=== PATIENT | male | born 1960 | race African-American/Black ===

== ENCOUNTER 2017-06-02 03:46 | Inpatient (IN) | payer MEDICAID ==
[~2017-06-02] VITALS: Ht 175.3 cm; Wt 103.0 kg
[2017-06-02 04:48] LABS: BASOPHILS % 0.4 % (0.0-2.0); EOSINOPHILS % 4.8 % (0.0-5.0); HEMATOCRIT. 43.4 % (42.0-52.0); HEMOGLOBIN. 14.7 g/dL (14.0-18.0); LYMPHOCYTES % 25.4 % (20.0-50.0); MEAN CORPUSCULAR HEMOGLOBIN 29.4 pg (28.0-32.0); MEAN CORPUSCULAR VOLUME 86.6 fL (80.0-94.0); MEAN PLATELET VOLUME 9.1 fl (7.4-10.4); MONOCYTES % 8.2 % (2.0-8.0); NEUTROPHILS % 61.2 % (40.0-76.0); PLATELET 197 x1000/uL (130-400); RED BLOOD CELL COUNT 5.02 mill/uL (4.7-6.1); RED CELL DISTRIBUTION WIDTH 14.5 % (11.6-14.6)
[2017-06-02 04:55] LABS: PROTHROMBIN TIME 10.4 sec
[2017-06-02 05:00] LABS: CARBON DIOXIDE 28 mEq/L (21-32); CHLORIDE 106 mEq/L (98-107); TROPONIN I < 0.02 ng/mL (0.00-0.04)
[2017-06-02] MEDS ORDERED: ASPIRIN 325MG TABLET PO ONE (07:45)
[2017-06-02] MEDS ORDERED: ASPIRIN 325MG TABLET PO SCH (10:30)
[2017-06-02] MEDS ORDERED: ONDANSETRON HCL 4MG/2ML VIAL IV PRN ×2 (10:30→17:15)
[2017-06-02] MEDS ORDERED: ACETAMINOPHEN 325MG TABLET PO PRN (10:30)
[2017-06-02] MEDS ORDERED: MORPHINE SULFATE 4 MG/ML CPJ (NOT FOR IM USE) IV PRN (10:45)
[2017-06-02] MEDS ORDERED: REGADENOSON 0.4 MG/5 ML IV SCH (11:15)
[2017-06-02] MEDS: LOSARTAN POTASSIUM 100 MG TABLET PO SCH (11:21)
[2017-06-02] MEDS: CLONIDINE 0.1MG TABLET PO SCH ×2 (13:24→21:07)
[2017-06-02] MEDS ORDERED: DOCUSATE SODIUM 100MG CAPSULE PO PRN (17:15)
[2017-06-02] MEDS ORDERED: ENOXAPARIN 40MG/0.4ML SYR SUBCUT SCH (18:00)
[2017-06-02 20:48] LABS: *AMPHETAMINES SCREEN URINE NEGATIVE (NEGATIVE); *BARBITURATES SCREEN URINE NEGATIVE (NEGATIVE); *COCAINE SCREEN URINE NEGATIVE (NEGATIVE); CANNABINOID URINE SCREEN NEGATIVE (NEGATIVE); METHADONE URINE SCREEN NEGATIVE (NEGATIVE); OPIATES URINE SCREEN NEGATIVE (NEGATIVE); PHENCYCLIDINE URINE SCREEN NEGATIVE (NEGATIVE)
[2017-06-02 20:50] LABS: *BENZODIAZEPINES SCREEN URINE NEGATIVE (NEGATIVE)
[2017-06-02] MEDS ORDERED: ZOLPIDEM TARTRATE 5MG TABLET PO PRN (21:00)
[2017-06-02] MEDS: AMLODIPINE 5MG TABLET PO SCH (21:00)
[2017-06-03] MEDS: CLONIDINE 0.1MG TABLET PO SCH ×2 (05:42→14:00)
[2017-06-03 06:55] LABS: BASOPHILS % 0.4 % (0.0-2.0); EOSINOPHILS % 4.4 % (0.0-5.0); HEMATOCRIT. 47.5 % (42.0-52.0); HEMOGLOBIN. 15.9 g/dL (14.0-18.0); MEAN CORPUSCULAR HEMOGLOBIN 29.3 pg (28.0-32.0); MEAN CORPUSCULAR VOLUME 87.8 fL (80.0-94.0); MEAN PLATELET VOLUME 9.1 fl (7.4-10.4); MONOCYTES % 7.4 % (2.0-8.0); NEUTROPHILS % 60.8 % (40.0-76.0); PLATELET 211 x1000/uL (130-400); RED BLOOD CELL COUNT 5.41 mill/uL (4.7-6.1); RED CELL DISTRIBUTION WIDTH 14.7 % (11.6-14.6)
[2017-06-03 07:09] LABS: CARBON DIOXIDE 26 mEq/L (21-32); CHLORIDE 105 mEq/L (98-107); HDL CHOLESTEROL 51 mg/dL (40-59); LDL CHOLESTEROL 188 mg/dL (5-100)
[2017-06-03] MEDS ORDERED: REGADENOSON 0.4 MG/5 ML IV ONE (08:54)
[2017-06-03] MEDS ORDERED: ENOXAPARIN 40MG/0.4ML SYR SUBCUT SCH (09:00)
[2017-06-03] MEDS ORDERED: ASPIRIN 325MG TABLET PO SCH (09:00)
[2017-06-03] MEDS: AMLODIPINE 5MG TABLET PO SCH (09:57)
[2017-06-03] MEDS: LOSARTAN POTASSIUM 100 MG TABLET PO SCH (09:57)
[2017-06-03 14:16] VITALS: BP 135/88
[2017-06-03] MEDS ORDERED: ENOXAPARIN 30MG/0.3ML SYR SUBCUT SCH (18:00)
[2017-06-03] MEDS ORDERED: ATORVASTATIN CALCIUM 20MG TABLET PO SCH (21:00)
== END 2017-06-03 15:30 | disposition home or self-care (01) | DRG 198 ==
LOC: ER 03:46 → 7WST 08:19 → EDBEDREQ 08:23 → ENRESERV 08:33
PROVIDERS: ADMIT Family Medicine Adult Medicine; ATTEND Family Medicine Adult Medicine
DX: I24.9 Acute ischemic heart disease, unspecified (principal); I10 Essential (primary) hypertension; E78.5 Hyperlipidemia, unspecified; Z79.82 Long term (current) use of aspirin; Z91.14 Patient's other noncompliance with medication regimen
CPT/HCPCS: 36415; 71010; 78452; 80053; 80061; 80305; 83880; 84484; 85025; 85610; 93005; 93017; 93306; 99285; A9500; J1650; J2785

== ENCOUNTER 2017-06-08 07:47 | Emergency (ER) | payer MEDICAID ==
[~2017-06-08] VITALS: Ht 175.3 cm; Wt 102.0 kg
[2017-06-08 07:57] VITALS: BP 159/89
== END 2017-06-08 10:06 | disposition left against medical advice (07) ==
LOC: ER 10:02
DX: I10 Essential (primary) hypertension (principal); Z53.21 Procedure and treatment not carried out due to patient leaving prior to being seen by health care provider

== ENCOUNTER 2017-09-20 15:50 | Emergency (ER) | payer MEDICAID ==
[~2017-09-20] VITALS: Ht 175.3 cm; Wt 100.0 kg
[2017-09-20] MEDS ORDERED: ONDANSETRON HCL 4MG/2ML VIAL IV STA (16:41)
[2017-09-20] MEDS ORDERED: MORPHINE SULFATE 10 MG/ML CPJ IV ONE ×2 (16:45→19:00)
[2017-09-20] MEDS ORDERED: LORAZEPAM 2MG/ML CPJ IV ONE (16:45)
[2017-09-20 17:47] LABS: BASOPHILS % 0.3 % (0.0-2.0); CHLORIDE 105 mEq/L (98-107); EOSINOPHILS % 2.5 % (0.0-5.0); HEMATOCRIT. 44.1 % (42.0-52.0); HEMOGLOBIN. 15.2 g/dL (14.0-18.0); LYMPHOCYTES % 22.3 % (20.0-50.0); MEAN CORPUSCULAR HEMOGLOBIN 30.3 pg (28.0-32.0); MEAN CORPUSCULAR VOLUME 87.7 fL (80.0-94.0); MEAN PLATELET VOLUME 9.6 fl (7.4-10.4); MONOCYTES % 7.9 % (2.0-8.0); PLATELET 197 x1000/uL (130-400); RED BLOOD CELL COUNT 5.03 mill/uL (4.7-6.1); RED CELL DISTRIBUTION WIDTH 14.2 % (11.6-14.6)
[2017-09-20 17:50] LABS: CARBON DIOXIDE 29 mEq/L (21-32); D-DIMER 0.21 mg/L FEU (<0.50); ETHANOL BLOOD < 10 mg/dL; PROTHROMBIN TIME 10.4 sec (9.4-11.6)
[2017-09-20 17:56] LABS: CREATINE KINASE 295 IU/L (39-308); TROPONIN I < 0.02 ng/mL (0.00-0.04)
[2017-09-20] MEDS ORDERED: ACETAMINOPHEN 325MG TABLET PO ONE (19:00)
[2017-09-20 21:16] VITALS: BP 145/77
== END 2017-09-20 21:18 | disposition home or self-care (01) ==
LOC: ER 16:17
DX: M54.12 Radiculopathy, cervical region (principal); R51 Headache; I10 Essential (primary) hypertension; Z91.14 Patient's other noncompliance with medication regimen
CPT/HCPCS: 36415; 70450; 71010; 80053; 82550; 83880; 84443; 84484; 85025; 85379; 85610; 93005; 96374; 96375; 96376; 99285; G0482; J2060; J2270; J2405; Z7610

== ENCOUNTER 2019-08-08 03:08 | Emergency (ER) | payer MEDICAID ==
[~2019-08-08] VITALS: Ht 175.3 cm; Wt 100.0 kg
[2019-08-08 05:10] LABS: BASOPHILS % 0.5 % (0.0-2.0); EOSINOPHILS % 3.1 % (0.0-5.0); HEMATOCRIT. 41.2 % (42.0-52.0); HEMOGLOBIN. 14.1 g/dL (14.0-18.0); LYMPHOCYTES % 28.3 % (20.0-50.0); MEAN CORPUSCULAR HEMOGLOBIN 30.2 pg (28.0-32.0); MEAN CORPUSCULAR VOLUME 87.9 fL (80.0-94.0); MEAN PLATELET VOLUME 9.4 fl (7.4-10.4); NEUTROPHILS % 60.1 % (40.0-76.0); PLATELET 187 x1000/uL (130-400); RED BLOOD CELL COUNT 4.68 mill/uL (4.7-6.1); RED CELL DISTRIBUTION WIDTH 13.9 % (11.6-14.6)
[2019-08-08 05:22] LABS: CHLORIDE 106 mEq/L (98-107)
[2019-08-08 06:52] VITALS: BP 168/128
== END 2019-08-08 07:12 | disposition home or self-care (01) ==
LOC: ER 03:08
DX: R07.89 Other chest pain (principal); I10 Essential (primary) hypertension
CPT/HCPCS: 36415; 71045; 83880; 84484; 85379; 93005; 99284

== ENCOUNTER 2022-03-28 09:58 | Emergency (ER) | payer MEDICAID ==
[~2022-03-28] VITALS: Ht 177.8 cm; Wt 107.0 kg
[2022-03-28 10:02] VITALS: BP 194/131
[2022-03-28] MEDS ORDERED: ACETAMINOPHEN 325MG TABLET PO ONE (10:15)
[2022-03-28] MEDS ORDERED: BACITRACIN ZINC OINT UDPKT TOP ONE (10:15)
[2022-03-28] MEDS ORDERED: LIDOCAINE HCL/PF 1% 10 MG/ML 5ML VIAL INFIL ONE (10:15)
[2022-03-28] MEDS ORDERED: TETANUS, DIPHTHERIA, PERTUSSIS VAC/PF 0.5ML (>10YR OLD) IM ONE (10:15)
[2022-03-28] MEDS ORDERED: CEPH500T MT (11:02)
== END 2022-03-28 11:19 | disposition home or self-care (01) ==
LOC: ER 09:58
DX: L03.012 Cellulitis of left finger (principal); I10 Essential (primary) hypertension
CPT/HCPCS: 10060; 90471; 90715; 99283; J3490; Z7610